=== PATIENT | female | born 1955 | race Caucasian/White ===

== ENCOUNTER 2018-02-20 07:40 | Day surgery (SDC) | payer OTHER ==
[2018-02-20] MEDS ORDERED: NEOMYCIN/POLY./DEXAM OPTH OINT OPTH ONE (07:41)
[2018-02-20] MEDS ORDERED: TETRACAINE HCL 0.5% 15 ML OPTH BTL OPTH ONE (07:41)
[2018-02-20] MEDS ORDERED: LIDOCAINE 2% MDV (20MG/ML) 20ML VIAL IV ONE ×2 (07:41)
[2018-02-20] MEDS ORDERED: PROPOFOL 10 MG/ML VIAL IV ONE (07:41)
[2018-02-20] MEDS ORDERED: EPINEPHRINE 1 MG/ML AMPUL SQ ONE (07:41)
[2018-02-20] MEDS ORDERED: CIPROFLOXACIN HCL 0.0015 GM, PHENYLEPHRINE HCL 0.05 GM, KETOROLAC TROMETHAMINE 0.000625 GM MC ONE ×5 (12:45)
--- NOTE | 2018-02-20 22:01 | Operative Note ---
DATE OF PROCEDURE: 02/20/18. PREOPERATIVE DIAGNOSIS: Nuclear sclerotic and posterior subcapsular cataract, left eye. POSTOPERATIVE DIAGNOSIS: Nuclear sclerotic and posterior subcapsular cataract, left eye. OPERATION: Phacoemulsification of cataractous lens with implantation of toric intraocular lens. PROCEDURE: The patient was given a reference tez to the left eye at the horizontal meridian in the Preoperative Area, after which a retrobulbar block and facial nerve block were placed in the usual fashion. The patient was brought to the Operating Room, where attention was directed to the left eye and , using the previously placed reference whitlock, the intraocular lens position whitlock were placed at 80 degrees, as determined preoperatively. The paracentesis incision was placed two hours to the left and to the right of the intended primary incision. The chamber was inflated with Viscoelastic and the crescent blade used to dissect into the temporal cornea, after which the keratome was used to enter the chamber. The continuous circular capsulorrhexis was performed with a bent needle and a Utrata forceps in a continuous fashion. Hydrodissection of the lens was performed and the nucleus of the lens was then removed in a divide and conquer fashion. The residual cortical material was irrigated and aspirated from the eye, after which the chamber and bag were reinflated with Viscoelastic. The intraocular lens was injected into the capsular bag and oriented into a position of alignment with the 80 degree corneal markings. The residual Viscoelastic was irrigated from the chamber and the lens was confirmed to have remained in position. The wounds were hydrated and the eye was noted to be water-tight. The eye was then shielded and the patient transferred to the Recovery Room in stable condition. JOB NUMBER: [id number] [facility]
== END 2018-02-20 10:20 | disposition home or self-care (01) ==
LOC: SUR 07:40
PROVIDERS: ATTEND Ophthalmology
DX: H25.042 Posterior subcapsular polar age-related cataract, left eye (principal); K21.9 Gastro-esophageal reflux disease without esophagitis
CPT/HCPCS: J0171

== ENCOUNTER 2018-03-13 06:07 | Day surgery (SDC) | payer OTHER ==
[2018-03-13] MEDS ORDERED: LIDOCAINE 2% MDV (20MG/ML) 20ML VIAL IV ONE ×2 (06:08)
[2018-03-13] MEDS ORDERED: EPINEPHRINE 1 MG/ML AMPUL SQ ONE (06:08)
[2018-03-13] MEDS ORDERED: TETRACAINE HCL 0.5% 15 ML OPTH BTL OPTH ONE (06:08)
[2018-03-13] MEDS ORDERED: NEOMYCIN/POLY./DEXAM OPTH OINT OPTH ONE (06:08)
[2018-03-13] MEDS ORDERED: PROPOFOL 10 MG/ML VIAL IV ONE (06:08)
[2018-03-13] MEDS ORDERED: CIPROFLOXACIN HCL 0.0015 GM, PHENYLEPHRINE HCL 0.05 GM, KETOROLAC TROMETHAMINE 0.000625 GM MC ONE ×5 (15:45)
--- NOTE | 2018-03-13 16:51 | Operative Note ---
DATE OF PROCEDURE: 03/13/18. PREOPERATIVE DIAGNOSIS: Nuclear sclerotic and cortical cataract, right eye. POSTOPERATIVE DIAGNOSIS: Nuclear sclerotic and cortical cataract, right eye. OPERATION: Phacoemulsification of cataractous lens with implantation of toric intraocular lens. LENS IMPLANT USED: [employer] Model [id number] + 17.0 diopters. COMPLICATIONS: None. PROCEDURE IN DETAIL: The patient was brought to the Operating Room, where under topical anesthesia, reference whitlock were placed at the 0 and 180-degree horizontal meridian. The patient was then given a retrobulbar block in the usual technique and she was prepped and draped in the usual fashion for eye surgery. The crescent blade was used to create a 2.4 mm scleral tunnel wound at the temporal position and a paracentesis was placed 2 o'clock hours to the left and to the right of this incision as well. The chamber was deepened with Viscoelastic, after which the keratome was used to enter the anterior chamber and the continuous circular capsulorrhexis was accomplished without difficulty. Hydrodissection of the lens was performed. The lens was removed in a divide and conquer technique and the residual cortical material was irrigated and aspirated from the capsular bag. The capsular bag was noted to be intact and the bag and chamber were reinflated with Viscoelastic. Using the original reference whitlock and a secondary marker to place a tez at the 95 degree meridia , the intraocular lens was dialed into position in alignment with these whitlock. The residual Viscoelastic was irrigated and aspirated from the eye and the wounds were hydrated and noted to be water-tight. The final position of this lens remained at 95 degrees, which was satisfactory. The patient was then transferred to the Recovery Room following patching and shielding. JOB NUMBER: [id number] [facility]
== END 2018-03-13 08:52 | disposition home or self-care (01) ==
LOC: SUR 06:07
PROVIDERS: ATTEND Ophthalmology
DX: H25.11 Age-related nuclear cataract, right eye (principal); E03.9 Hypothyroidism, unspecified; K21.9 Gastro-esophageal reflux disease without esophagitis
CPT/HCPCS: J0171